=== PATIENT | female | born 1940 | race Caucasian/White ===

== ENCOUNTER 2023-02-13 13:05 | Outpatient (CLI) | payer MEDICARE, BC, SELFPAY ==
[2023-02-13 16:51] LABS: Creatinine* 0.7 mg/dL (0.5-1.5); Estimated Glomerular Filt Rate 86 ml/min
[2023-02-13 16:52] LABS: Alanine Aminotransferase* 20 U/L (4-35); Alkaline Phosphatase* 109 U/L (40-150); Aspartate Amino Transferase* 55 U/L (12-35); Bilirubin Total* 0.7 mg/dL (0.1-1.5); Calcium* 10.3 mg/dL (8.4-10.6)
[2023-02-13 16:56] LABS: Basophils Percent Auto 0.5 % (0.0-3.0); Eosinophils Percent Auto 2.7 % (0.0-7.0); Hematocrit 40.5 % (33.0-51.0); Hemoglobin* 13.3 gm/dL (12.0-16.0); Immature Granulocytes Pct Auto 0.7 %; Lymphocytes Percent Auto 36.4 % (20-44); Mean Corpuscular HGB Conc 33 gm/dL (32-36); Mean Corpuscular Hemoglobin 33 pg (26-34); Mean Corpuscular Volume 101 fL (80-100); Neutrophils Percent Auto 47.7 % (42.0-72.0); Platelet Count* 265 K/uL (140-440); RDW Coefficient of Variation % 14.5 % (11.5-15.5); Red Blood Count 4.02 m/uL (4.00-5.20); White Blood Count* 4.01 K/uL (4.50-11.00)
[2023-02-13 17:02] LABS: Slide Review Reflex No
[2023-02-15 16:50] LABS: Cancer Antigen 125 12 U/mL (<=38)
== END 2023-02-13 13:06 | disposition home or self-care (01) ==
PROVIDERS: Visit Provider Internal Medicine
DX: C56.3 Malignant neoplasm of bilateral ovaries (principal)
CPT/HCPCS: 36415; 82247; 82310; 82565; 84075; 84450; 84460; 85025; 86304